=== PATIENT | female | born 1955 | race Caucasian/White ===

== ENCOUNTER → 2023-11-16 08:06 | Outpatient (REF) | payer MEDICARE, OTHER, SELFPAY | LOC: HWRAD 08:06 | PROVIDERS: ATTENDING PHYSICIAN Physician Assistant | DX: F17.210 Nicotine dependence, cigarettes, uncomplicated (principal) | CPT/HCPCS: 71271 ==

== ENCOUNTER → 2023-12-25 12:42 | Outpatient (REF) | payer MEDICARE, OTHER, SELFPAY | LOC: RAD 12:42 | PROVIDERS: ATTENDING PHYSICIAN Nurse Practitioner Family | DX: S65 Injury of blood vessels at wrist and hand level (principal) | CPT/HCPCS: 73130 ==

== ENCOUNTER 2024-01-13 13:01 | Emergency (ER) | payer MEDICARE, OTHER, SELFPAY ==
[2024-01-13 13:02] VITALS: BP 156/91
--- NOTE | 2024-01-13 14:12 | ED.GENMED ---
History of Present Illness
General
Chief Complaint: Musculo-Skeletal Complaint
Time Seen by Provider: 01/13/24 13:17
History of Present Illness
History of Present Illness:
68-year-old female presents to the emergency department for ration of left foot pain, she states she slipped while attempting in bed and felt severe pain in the left foot. She is able to ambulate on the heel but did not put weight directly on that
side of the foot.
Past History
Past History
ED Past Medical History: Hypercholesterolemia, Hypothyroidism and Other (Arthritis)
ED Past Surgical History: Gynecological
Patient has exhibited threatening behavior?: No
PSI?: No
Social History
Tobacco: Smoker
Alcohol: Occasional
Personal:
Living: with family
Family History
Family History: Diabetes and CAD
Review of Systems
Review of Systems
Allergies reviewed?: Yes
All Other Systems: ROS reviewed and negative except as documented in HPI and ROS
Phy Exam
Physical Exam
Physical Exam:
GEN: Well appearing, NAD, WDWN
HEENT: Oral mucosa moist, no scleral icterus
Cardiac: Regular rate
Lung: No respiratory distress, no tachypnea
MSK: Mild swelling and ecchymosis to the left lateral foot proximal fifth phalanx, no gross deformity
Skin: Good color, no pallor or jaundice, no rashes
Neuro: AO x3, moves all extremities freely
Psych: Calm, cooperative
Course
Orders/Labs/Results
Orders:
Orders
01/13/24 13:42
CR Foot - Left Min 3 Views Urgent
Comment:
Reason For Exam: foot injury 5th MT
Vital Signs
Initial and Last Documented VS:
Initial Vital Signs
Temp Pulse Resp BP Pulse Ox
98.0 F 98 18 156/91 99
01/13/24 13:02 01/13/24 13:02 01/13/24 13:02 01/13/24 13:02 01/13/24 13:02
Last Documented Vital Signs
Temp Pulse Resp BP Pulse Ox
98.0 F 98 18 156/91 99
01/13/24 13:02 01/13/24 13:02 01/13/24 13:02 01/13/24 13:02 01/13/24 13:02
MDM/Problems Addressed
MDM/Problems Addressed:
X-rays reveal a fracture of the left fifth metatarsal, placed in a walking boot, weightbearing as tolerated until orthopedic follow-up
*Critical Care Note
Total Time (30-74mins, 75-104mins- exclusive of procedures): Not Applicable
ED Attending Note
-
Portions of this chart may have been created with voice recognition software.� Occasional wrong word or��sound alike� substitutions may have occurred due to the inherent limitations of voice recognition software.
Discharge Plan
Departure
Patient Disposition: Home (Routine Discharge)
Date of Disposition: 01/13/24
Time of Disposition: 14:12
Patient with high blood pressure during this ER visit?: No
Discharge Problem:
Fracture of fifth metatarsal bone of left foot
Instructions: Foot Fracture (DC)
Prescriptions:
No Action
tamsulosin 0.4 MG capsule
0.4 mg PO DAILY Qty: 7 0RF
ondansetron 4 MG tablet,disintegrating
4 mg PO TIDPRN PRN (Reason: nausea/vomting) Qty: 10 0RF
hydrocodone-acetaminophen [[place]] 1 EACH tablet
1 ea PO Q4HPRN PRN (Reason: severe pain) Qty: 12 0RF
cyclobenzaprine 10 MG tablet
10 mg PO BIDPRN PRN (Reason: back pain/spasm) Qty: 20 0RF
Referrals:
Khai Rodriguez MD [Family Provider] -
Huan Jalloh MD [Active] -
Jeromy Rowell DPM [Active] -
Interventions
Interventions:
*Risk Screen - Suicide Last Done: 01/13/24 13:02
*General Assessment Last Done: 01/13/24 13:02
*Neglect/Abuse Screening Last Done: 01/13/24 13:02
ED- Fall Risk Assessment Last Done: 01/13/24 13:21
*ED COVID-19 Vaccine History Last Done: 01/13/24 13:02
*Nursing Disposition Last Done: 01/13/24 14:23
ED-Musculoskeletal Assessment Last Done: 01/13/24 13:21
Discharge Date and Time
Discharge Date/Time: 01/13/24 14:24
Print Language: RWANDAN
== END 2024-01-13 14:24 | disposition home or self-care (01) ==
LOC: EMR 13:01
PROVIDERS: EMERGENCY PHYSICIAN Student in an Organized Health Care Education/Training Program; FAMILY PHYSICIAN Family Medicine
DX: S92.352A Displaced fracture of fifth metatarsal bone, left foot, initial encounter for closed fracture (principal); W01.0XXA Fall on same level from slipping, tripping and stumbling without subsequent striking against object, initial encounter; E03.9 Hypothyroidism, unspecified; E78.00 Pure hypercholesterolemia, unspecified; F17.200 Nicotine dependence, unspecified, uncomplicated
CPT/HCPCS: 99283; 73630

== ENCOUNTER → 2024-05-24 06:22 | Outpatient (REF) | payer MEDICARE, OTHER, SELFPAY | LOC: HWWDC 06:22 | PROVIDERS: ATTENDING PHYSICIAN Physician Assistant | DX: Z12.31 Encounter for screening mammogram for malignant neoplasm of breast (principal) | CPT/HCPCS: 77063; 77067 ==

== ENCOUNTER → 2024-09-10 16:56 | Outpatient (REF) | payer MEDICARE, OTHER, SELFPAY | LOC: RAD 16:56 | PROVIDERS: ATTENDING PHYSICIAN Physician Assistant Medical; FAMILY PHYSICIAN Family Medicine | DX: M25.562 Pain in left knee (principal) | CPT/HCPCS: 73560 ==

== ENCOUNTER → 2025-02-13 09:41 | Outpatient (REF) | payer MEDICARE, OTHER, SELFPAY | LOC: HWRAD 09:41 | PROVIDERS: ATTENDING PHYSICIAN Physician Assistant | DX: F17.210 Nicotine dependence, cigarettes, uncomplicated (principal) | CPT/HCPCS: 71271 ==